=== PATIENT | male | born 2005 | race Hispanic/Latino ===

== ENCOUNTER 2025-02-09 19:29 | Emergency (ER) | payer SELFPAY, OTHER ==
[2025-02-09] MEDS ORDERED: Acetaminophen 500 MG TAB ONE (20:13)
[2025-02-09] MEDS ORDERED: Orphenadrine Citrate 60 MG/2 ML VIAL ONE (20:13)
== END 2025-02-09 22:28 | disposition home or self-care (01) ==
LOC: ERS 19:29
DX: S09.90XA Unspecified injury of head, initial encounter (principal); M54.50 Low back pain, unspecified; M54.2 Cervicalgia; V89.2XXA Person injured in unspecified motor-vehicle accident, traffic, initial encounter
CPT/HCPCS: 70450; 72125; 72131; 96372; J2360; J3010